=== PATIENT | male | born 1945 | race African-American/Black ===

== ENCOUNTER 2018-02-02 14:13 | Inpatient (IN) | payer OTHER, MEDICARE ==
[2018-02-02] VITALS (13 sets, daily range): BP systolic 130–186; BP diastolic 56–88
[~2018-02-02] VITALS: Ht 175.3 cm; Wt 93.4 kg
[2018-02-02] MEDS ORDERED: SODIUM CHLORIDE 0.9% 1,000 ML IV ONE (15:12)
[2018-02-02 15:34] LABS: BASOPHILS % 0.9 % (0.0-2.0); EOSINOPHILS % 1.8 % (0.0-5.0); HEMATOCRIT. 35.6 % (42.0-52.0); LYMPHOCYTES % 25.8 % (20.0-50.0); MEAN CORPUSCULAR HEMOGLOBIN 18.3 pg (28.0-32.0); MEAN CORPUSCULAR VOLUME 58.9 fL (80.0-94.0); MEAN PLATELET VOLUME 8.6 fl (7.4-10.4); MONOCYTES % 4.8 % (2.0-8.0); NEUTROPHILS % 66.7 % (40.0-76.0); PLATELET 164 x1000/uL (130-400); RED BLOOD CELL COUNT 6.04 mill/uL (4.7-6.1); RED CELL DISTRIBUTION WIDTH 15.9 % (11.6-14.6)
[2018-02-02 15:38] LABS: CHLORIDE 104 mEq/L (98-107); INR 1.1
[2018-02-02 16:17] LABS: PLATELET ESTIMATE NORMAL
[2018-02-02] MEDS ORDERED: CLONIDINE 0.1MG TABLET PO ONE (17:00)
[2018-02-02] MEDS ORDERED: TRAMADOL 50MG TABLET PO PRN (17:30)
[2018-02-02] MEDS ORDERED: ONDANSETRON HCL 4MG/2ML VIAL IV PRN ×2 (17:30→20:15)
[2018-02-02] MEDS ORDERED: ACETAMINOPHEN 325MG TABLET PO PRN (17:30)
[2018-02-02] MEDS ORDERED: GUAIFENESIN 200MG/10ML SUGAR FREE UDC PO PRN (17:30)
[2018-02-02] MEDS ORDERED: ENOXAPARIN 40MG/0.4ML SYR SUBCUT SCH (17:30)
[2018-02-02] MEDS ORDERED: MAGNESIUM/ALUMINUM HYDROXIDE/SIMETHICONE 30ML UDC PO PRN (17:30)
[2018-02-02] MEDS ORDERED: NA PHOS,M-B/NA PHOS,DI-BA ENEMA 118ML PR PRN (17:30)
[2018-02-02] MEDS ORDERED: CLONIDINE 0.1MG TABLET PO PRN (17:30)
[2018-02-02] MEDS ORDERED: IPRATROPIUM/ALBUTEROL 0.5-3(2.5)MG/3ML NEB INH PRN (17:30)
[2018-02-02] MEDS ORDERED: DIPHENHYDRAMINE 50MG/ML VIAL IV PRN (17:30)
[2018-02-02] MEDS ORDERED: ZOLPIDEM TARTRATE 5MG TABLET PO PRN (17:30)
[2018-02-02] MEDS ORDERED: DOCUSATE SODIUM 100MG CAPSULE PO PRN (17:30)
[2018-02-02] MEDS ORDERED: NITROGLYCERIN 0.4MG TABLET SL SL PRN ×2 (18:00)
[2018-02-02 19:28] LABS: ETHANOL BLOOD < 10 mg/dL
[2018-02-02] MEDS ORDERED: LISINOPRIL 20MG TABLET PO NR (19:30)
[2018-02-02] MEDS ORDERED: AMLODIPINE 10MG TABLET PO NR (19:30)
[2018-02-02] MEDS ORDERED: METOPROLOL TARTRATE 25MG TABLET PO NR (19:30)
[2018-02-02 19:31] LABS: LDL CHOLESTEROL 85 mg/dL (5-100)
[2018-02-02 19:33] LABS: HDL CHOLESTEROL 42 mg/dL (40-59)
[2018-02-02] MEDS ORDERED: IOHEXOL-350 100 ML BOTTLE ONE (19:35)
[2018-02-02] MEDS ORDERED: PHENYTOIN SODIUM 1,000 MG in SODIUM CHLORIDE 0.9% 100 ML IV ONE ×2 (19:45→20:00)
[2018-02-02] MEDS ORDERED: NICARDIPINE 40MG/200ML PREMIX 200 ML IV STA (19:52)
[2018-02-02] MEDS ORDERED: MANNITOL 20% 125 ML IV ONE (20:00)
[2018-02-02] MEDS ORDERED: ACETAMINOPHEN 650MG SUPP PR PRN (20:15)
[2018-02-02] MEDS ORDERED: DEXTROSE 50% WATER 50ML SYRINGE IV PRN (20:15)
[2018-02-02] MEDS ORDERED: LISINOPRIL 20MG TABLET PO SCH (21:00)
[2018-02-02] MEDS: BLOOD SUGAR DIAGNOSTIC STRIP TEST SCH (21:00)
[2018-02-02] MEDS ORDERED: FAMOTIDINE 20MG TABLET PO SCH (21:00)
[2018-02-02] MEDS ORDERED: AMLODIPINE 10MG TABLET PO SCH (21:00)
[2018-02-02] MEDS ORDERED: DEXT 5%/LACTATED RINGERS 1,000 ML IV SCH (21:00)
[2018-02-02] MEDS ORDERED: METOPROLOL TARTRATE 25MG TABLET PO SCH (21:00)
[2018-02-02] MEDS ORDERED: NICARDIPINE 50 MG in SODIUM CHLORIDE 0.9% 230 ML IV PRN ×4 (21:30)
[2018-02-02] MEDS ORDERED: MORPHINE SULFATE 4 MG/ML CPJ (NOT FOR IM USE) IV PRN (22:00)
[2018-02-02] MEDS: DEXT 5%/LACTATED RINGERS 1,000 ML IV SCH (22:49)
[2018-02-02] MEDS: INSULIN LISPRO 100 UNITS/ML SUBCUT SCH (22:50)
[2018-02-02] MEDS ORDERED: LEVETIRACETAM 500 MG in SODIUM CHLORIDE 0.9% 100 ML IV NR (23:30)
[2018-02-03] VITALS (94 sets, daily range): BP systolic 93–163; BP diastolic 46–106
[2018-02-03] MEDS: DEXAMETHASONE 4MG/ML 1ML VIAL IV SCH ×4 (05:31→17:46)
[2018-02-03] MEDS: NICARDIPINE 50 MG in SODIUM CHLORIDE 0.9% 230 ML IV PRN ×3 (05:32→23:05)
[2018-02-03] MEDS: INSULIN LISPRO 100 UNITS/ML SUBCUT SCH ×4 (06:01→21:29)
[2018-02-03] MEDS: BLOOD SUGAR DIAGNOSTIC STRIP TEST SCH ×4 (06:02→21:24)
[2018-02-03] MEDS: PANTOPRAZOLE SODIUM 40 MG/VIAL IV SCH (08:28)
[2018-02-03] MEDS: LEVETIRACETAM 500 MG in SODIUM CHLORIDE 0.9% 100 ML IV SCH ×2 (08:28→21:24)
[2018-02-03] MEDS ORDERED: ASPIRIN 325MG EC TABLET PO SCH (09:00)
[2018-02-03] MEDS: INSULIN GLARGINE UD 100 UNITS/ML SYR SUBCUT SCH (12:39)
[2018-02-03] MEDS: AMLODIPINE 10MG TABLET PO SCH (13:53)
[2018-02-03] MEDS: HYDRALAZINE HCL 50MG TABLET PO SCH ×2 (13:54→21:24)
[2018-02-03] MEDS: DEXT 5%/LACTATED RINGERS 1,000 ML IV SCH (15:12)
[2018-02-03] MEDS ORDERED: ATOR-2 PO (19:36)
[2018-02-03] MEDS ORDERED: AMLO5TAB88 PO (19:36)
[2018-02-03] MEDS ORDERED: METF10004 PO (19:36)
[2018-02-03] MEDS ORDERED: LISI-604 PO (19:36)
[2018-02-03] MEDS: METOPROLOL TARTRATE 25MG TABLET PO SCH (21:23)
[2018-02-03] MEDS: LISINOPRIL 20MG TABLET PO SCH (21:23)
[2018-02-04] VITALS (71 sets, daily range): BP systolic 109–155; BP diastolic 53–90
[2018-02-04] MEDS: HYDRALAZINE HCL 50MG TABLET PO SCH ×2 (05:46→13:38)
[2018-02-04] MEDS: DEXAMETHASONE 4MG/ML 1ML VIAL IV SCH (05:46)
[2018-02-04] MEDS: BLOOD SUGAR DIAGNOSTIC STRIP TEST SCH ×2 (05:47→11:30)
[2018-02-04] MEDS: INSULIN LISPRO 100 UNITS/ML SUBCUT SCH ×2 (06:03→12:00)
[2018-02-04] MEDS: DEXT 5%/LACTATED RINGERS 1,000 ML IV SCH (08:31)
[2018-02-04] MEDS: PANTOPRAZOLE SODIUM 40 MG/VIAL IV SCH (09:48)
[2018-02-04] MEDS: AMLODIPINE 10MG TABLET PO SCH (09:49)
[2018-02-04] MEDS: METOPROLOL TARTRATE 25MG TABLET PO SCH (09:49)
[2018-02-04] MEDS: LISINOPRIL 20MG TABLET PO SCH (09:50)
[2018-02-04] MEDS: LEVETIRACETAM 500 MG in SODIUM CHLORIDE 0.9% 100 ML IV SCH (09:51)
[2018-02-04] MEDS: INSULIN GLARGINE UD 100 UNITS/ML SYR SUBCUT SCH (11:04)
[2018-02-04] MEDS ORDERED: MINOXIDIL 2.5MG TABLET PO SCH (12:00)
[2018-02-04] MEDS ORDERED: CLONIDINE 0.1MG TABLET PO PRN (12:00)
[2018-02-04] MEDS ORDERED: DUTASTERIDE 0.5MG CAPSULE PO SCH (12:00)
[2018-02-04] MEDS: NICARDIPINE 50 MG in SODIUM CHLORIDE 0.9% 230 ML IV PRN (14:17)
[2018-02-04] MEDS ORDERED: TAMSULOSIN HCL 0.4MG SR CAPSULE PO SCH (21:00)
== END 2018-02-04 17:15 | disposition short-term general hospital (02) | DRG 66 ==
LOC: ER 14:19 → ENRESERV 15:30 → CANRESERV 15:30 → EDBEDREQ 17:00 → EDBEDREQTM 17:00 → EDBEDREQSVC 19:27 → EDBEDREQ 19:28 → EDBEDREQTM 19:28 → ENRESERV 19:52 → MICUSO 19:52
PROVIDERS: ADMIT Internal Medicine; ATTEND Internal Medicine
DX: I62.9 Nontraumatic intracranial hemorrhage, unspecified (principal); I61.9 Nontraumatic intracerebral hemorrhage, unspecified; I10 Essential (primary) hypertension; E11.65 Type 2 diabetes mellitus with hyperglycemia; G90.8 Other disorders of autonomic nervous system; D63.8 Anemia in other chronic diseases classified elsewhere; E78.5 Hyperlipidemia, unspecified; N40.1 Benign prostatic hyperplasia with lower urinary tract symptoms; R33.8 Other retention of urine; Z79.4 Long term (current) use of insulin; Z79.899 Other long term (current) drug therapy; Z91.14 Patient's other noncompliance with medication regimen
CPT/HCPCS: 36415; 70450; 70551; 71045; 71275; 80053; 80061; 82962; 83036; 84484; 85025; 85610; 93005; 93970; 96365; 96367; 96368; 99291; C9113; G0482; J1100; J1165; J1815; J1953; J3490; J7030; J7050; J7121; Q9967; A4315

== ENCOUNTER 2019-08-31 09:00 | Emergency (ER) | payer OTHER, MEDICARE ==
[~2019-08-31] VITALS: Ht 182.9 cm; Wt 87.0 kg
[2019-08-31] MEDS ORDERED: CLONIDINE 0.1MG TABLET PO ONE (09:30)
[2019-08-31 10:12] LABS: BASOPHILS % 0.5 % (0.0-2.0); EOSINOPHILS % 1.5 % (0.0-5.0); HEMATOCRIT. 37.5 % (42.0-52.0); HEMOGLOBIN. 11.7 g/dL (14.0-18.0); LYMPHOCYTES % 19.1 % (20.0-50.0); MEAN CORPUSCULAR HEMOGLOBIN 18.8 pg (28.0-32.0); MEAN CORPUSCULAR VOLUME 60.3 fL (80.0-94.0); MEAN PLATELET VOLUME 8.8 fl (7.4-10.4); MONOCYTES % 6.1 % (2.0-8.0); NEUTROPHILS % 72.8 % (40.0-76.0); PLATELET 141 x1000/uL (130-400); RED BLOOD CELL COUNT 6.22 mill/uL (4.7-6.1); RED CELL DISTRIBUTION WIDTH 15.7 % (11.6-14.6)
[2019-08-31 10:19] LABS: INR 1.1; PROTHROMBIN TIME 11.2 sec (9.6-11.0)
[2019-08-31 10:20] LABS: CHLORIDE 105 mEq/L (98-107)
[2019-08-31 10:44] LABS: CLARITY URINE CLEAR (CLEAR); COLOR URINE YELLOW (YELLOW); KETONES URINE NEGATIVE (NEGATIVE); LEUKOCYTE ESTERASE URINE NEGATIVE (NEGATIVE); NITRITE URINE NEGATIVE (NEGATIVE); OCCULT BLOOD URINE NEGATIVE (NEGATIVE); PH URINE 7.5 (4.5-8.0); PROTEIN URINE 2+ (NEGATIVE); SPECIFIC GRAVITY URINE 1.008 (1.005-1.030); UROBILINOGEN URINE 0.2 E.U./dL (0.2-1.0)
[2019-08-31 10:51] LABS: PLATELET ESTIMATE NORMAL
[2019-08-31 12:50] VITALS: BP 183/89
== END 2019-08-31 14:05 | disposition short-term general hospital (02) ==
LOC: ER 09:13
DX: G45.9 Transient cerebral ischemic attack, unspecified (principal); I10 Essential (primary) hypertension; E11.9 Type 2 diabetes mellitus without complications; Z86.73 Personal history of transient ischemic attack (TIA), and cerebral infarction without residual deficits
CPT/HCPCS: 36415; 71045; 80053; 81003; 84484; 85025; 93005; 99285

== ENCOUNTER 2020-05-16 14:31 | Emergency (ER) | payer OTHER, MEDICARE ==
[~2020-05-16] VITALS: Ht 175.3 cm; Wt 80.0 kg
[2020-05-16] MEDS ORDERED: CLONIDINE 0.1MG TABLET PO ONE (15:00)
[2020-05-16] MEDS ORDERED: SODIUM CHLORIDE 0.9% 1,000 ML IV ONE (15:00)
[2020-05-16 15:43] LABS: BASOPHILS % 0.3 % (0.0-2.0); EOSINOPHILS % 0.3 % (0.0-5.0); HEMATOCRIT. 36.7 % (42.0-52.0); HEMOGLOBIN. 11.4 g/dL (14.0-18.0); LYMPHOCYTES % 21.5 % (20.0-50.0); MEAN CORPUSCULAR HEMOGLOBIN 18.7 pg (28.0-32.0); MONOCYTES % 4.2 % (2.0-8.0); NEUTROPHILS % 73.7 % (40.0-76.0); PLATELET 142 x1000/uL (130-400); RED BLOOD CELL COUNT 6.11 mill/uL (4.7-6.1); RED CELL DISTRIBUTION WIDTH 15.6 % (11.6-14.6)
[2020-05-16 15:45] LABS: CHLORIDE 97 mEq/L (98-107)
[2020-05-16 15:50] LABS: ETHANOL BLOOD < 10 mg/dL
[2020-05-16 15:56] LABS: BETA HYDROXYBUTYRATE 0.5 mMol/L (0.0-0.3)
[2020-05-16 16:02] LABS: INR 1.1; PROTHROMBIN TIME 11.2 sec (9.6-11.0)
[2020-05-16 16:25] LABS: PLATELET ESTIMATE NORMAL
[2020-05-16] MEDS ORDERED: LABETALOL 5MG/ML SYR 20 MG/4 ML SYRINGE IV ONE (16:45)
[2020-05-16 17:28] LABS: CLARITY URINE CLEAR (CLEAR); COLOR URINE YELLOW (YELLOW); KETONES URINE TRACE (NEGATIVE); LEUKOCYTE ESTERASE URINE NEGATIVE (NEGATIVE); NITRITE URINE NEGATIVE (NEGATIVE); OCCULT BLOOD URINE NEGATIVE (NEGATIVE); PROTEIN URINE 2+ (NEGATIVE)
[2020-05-16 17:59] LABS: *AMPHETAMINES SCREEN URINE NEGATIVE (NEGATIVE); *BARBITURATES SCREEN URINE NEGATIVE (NEGATIVE); *BENZODIAZEPINES SCREEN URINE NEGATIVE (NEGATIVE); *COCAINE SCREEN URINE NEGATIVE (NEGATIVE)
[2020-05-16 18:00] LABS: CANNABINOID URINE SCREEN NEGATIVE (NEGATIVE); METHADONE URINE SCREEN NEGATIVE (NEGATIVE); OPIATES URINE SCREEN NEGATIVE (NEGATIVE); PHENCYCLIDINE URINE SCREEN NEGATIVE (NEGATIVE)
[2020-05-16 18:38] VITALS: BP 167/78
== END 2020-05-16 19:07 | disposition short-term general hospital (02) ==
LOC: ER 14:31 → EDBEDREQTM 17:00 → EDBEDREQ 17:00 → CANBEDREQ 18:09 → ER 19:07
DX: I67.4 Hypertensive encephalopathy (principal); E11.65 Type 2 diabetes mellitus with hyperglycemia; D50.9 Iron deficiency anemia, unspecified; I10 Essential (primary) hypertension; Z86.73 Personal history of transient ischemic attack (TIA), and cerebral infarction without residual deficits
CPT/HCPCS: 36415; 70450; 71045; 80053; 80305; 80320; 81003; 82010; 82962; 83605; 83880; 84484; 85025; 85610; 93005; 96361; 96374; 99285; J3490; J7030; G0480

== ENCOUNTER 2022-11-15 08:56 | Emergency (ER) | payer OTHER, MEDICARE ==
[~2022-11-15] VITALS: Ht 175.3 cm; Wt 82.0 kg
[2022-11-15 09:36] LABS: BASOPHILS % 0.6 % (0.0-2.0); EOSINOPHILS % 3.5 % (0.0-5.0); HEMATOCRIT. 34.9 % (42.0-52.0); HEMOGLOBIN. 10.9 g/dL (14.0-18.0); LYMPHOCYTES % 20.8 % (20.0-50.0); MEAN CORPUSCULAR HEMOGLOBIN 18.8 pg (28.0-32.0); MEAN CORPUSCULAR VOLUME 60.1 fL (80.0-94.0); MEAN PLATELET VOLUME 8.7 fl (7.4-10.4); MONOCYTES % 3.7 % (2.0-8.0); NEUTROPHILS % 71.4 % (40.0-76.0); PLATELET 165 x1000/uL (130-400); RED BLOOD CELL COUNT 5.81 mill/uL (4.7-6.1); RED CELL DISTRIBUTION WIDTH 16.3 % (11.6-14.6)
[2022-11-15 09:46] LABS: CHLORIDE 109 mEq/L (98-107)
[2022-11-15 09:58] LABS: PLATELET ESTIMATE NORMAL
[2022-11-15] MEDS ORDERED: CLONIDINE 0.2MG TABLET PO ONE (11:15)
[2022-11-15 12:35] VITALS: BP 177/88
== END 2022-11-15 12:36 | disposition home or self-care (01) ==
LOC: ER 09:45
DX: R06.4 Hyperventilation (principal); F41.9 Anxiety disorder, unspecified; I10 Essential (primary) hypertension; E11.9 Type 2 diabetes mellitus without complications; I50.9 Heart failure, unspecified; Z86.73 Personal history of transient ischemic attack (TIA), and cerebral infarction without residual deficits; I11.0 Hypertensive heart disease with heart failure
CPT/HCPCS: 36415; 71045; 80053; 83880; 84484; 85025; 93005; 99285; Z7610

== ENCOUNTER 2023-05-16 23:10 | Emergency (ER) | payer OTHER, MEDICARE ==
[~2023-05-16] VITALS: Ht 177.8 cm; Wt 100.0 kg
[2023-05-16 23:10] VITALS: BP 0/0
[2023-05-16 23:25] VITALS: PULSE 120
== END 2023-05-16 23:26 ==
LOC: ER 23:10
DX: R06.02 Shortness of breath (principal); I11.0 Hypertensive heart disease with heart failure; I50.9 Heart failure, unspecified; Z86.73 Personal history of transient ischemic attack (TIA), and cerebral infarction without residual deficits; E11.9 Type 2 diabetes mellitus without complications
CPT/HCPCS: 31500 ×2; 92950; 99291; Z7610